=== PATIENT | male | born 1930 | race Caucasian/White ===

== ENCOUNTER 2018-03-27 16:24 | Emergency (ER) | payer MEDICARE, BC ==
[2018-03-27 16:34] VITALS: BP 194/80
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
--- NOTE | 2018-03-28 08:06 | CT ---
Head CT Technique: Multiple axial sections through the brain were obtained. Intravenous contrast was not utilized. Comparison: No previous intracranial imaging. Large soft tissue hematoma seen within the right upper periorbital soft tissues and within the right forehead. Ventricles along with basal cisterns and sulci over the convexities are mildly to moderately prominent. No abnormal parenchymal densities are seen. No evidence of intracranial hemorrhage. No midline shift or mass effect is seen. Bone window settings were reviewed which show diffuse opacification of the maxillary sinuses extending into the nasal cavity. Moderate to severe mucosal thickening noted within the sphenoid and ethmoid sinuses. Opacified frontal sinuses are noted. No acute calvarial abnormality is seen. Impression: 1. Large soft tissue hematoma within the right upper periorbital region and right forehead. 2. Chronic sinus findings as noted above. 3. No acute intracranial abnormality is identified. No acute skull fracture is seen. Diagnostic code #3 I agree with preliminary report from [facility], finalized on 03/27/18, 6:32 PM Central Time
--- NOTE | 2018-03-28 08:06 | CT ---
CT cervical spine Technique: Multiple axial sections were obtained from above C1 inferiorly to the top of T3. Reconstructed sagittal and coronal images were reviewed. Findings: Mild disc space narrowing is noted at C4-C5 with severe disc space narrowing noted at C5-C6 and C6-C7. Vertebral body heights are maintained. Diffuse anterior osteophytes are seen. Mild diffuse posterior osteophytes are seen. Degenerative change is noted between the dens and anterior arch of C1. Incomplete arch of C1 is seen which is a normal variant. Diffuse degenerative change is noted throughout the apophyseal joints on both sides. Moderate left sided neural foraminal stenosis is noted at C2-C3. Moderate right-sided neural foraminal stenosis is noted at C3-C4 and mild left-sided neural foraminal stenosis is noted at C3-C4. Moderate left sided neural foraminal stenosis is noted C4-C5 and severe right-sided neural foraminal stenosis is noted C4-C5. Moderate left-sided neural foraminal stenosis is noted at C5-C6 with severe right-sided neural foraminal stenosis is noted at C5-C6. Moderate bilateral neural foraminal stenosis is noted at C6-C7. Other neural foramina are felt to be patent. No fracture is identified. Mild subluxation noted at C4-C5 compatible with degenerative apophyseal change. Impression: 1. Multilevel degenerative change as noted above. 2. No acute abnormality identified on cervical spine CT exam. Diagnostic code #3 I agree with preliminary report from [facility], finalized on 03/27/18, 6:34 PM Central Time
== END 2018-03-27 17:58 | disposition home or self-care (01) ==
LOC: JD.ED 16:24
DX: S01.81XA Laceration without foreign body of other part of head, initial encounter (principal); S01.01XA Laceration without foreign body of scalp, initial encounter; I10 Essential (primary) hypertension; E78.00 Pure hypercholesterolemia, unspecified; Z79.899 Other long term (current) drug therapy; Z87.891 Personal history of nicotine dependence; Z79.82 Long term (current) use of aspirin; W05.1XXA Fall from non-moving nonmotorized scooter, initial encounter
CPT/HCPCS: 70450; 70450-26; 72125; 72125-26; 99283-25; 99284